=== PATIENT | male | born 1995 | race Caucasian/White ===

== ENCOUNTER 2016-07-29 08:34 | Day surgery (SDC) | payer OTHER ==
[~2016-07-29 08:34] MED LIST: BUPIVACAINE 0.5% 30 ML SDV ONE; ceFAZolin 2 GM/DEXTROSE 100 ML IV ONE
[2016-07-29] MEDS ORDERED: CEFAZOLIN 2 GM/DEXTROSE/100 ML BAG IV ONE (08:53)
[2016-07-29] MEDS ORDERED: LIDOCAINE 1% 5 ML SDV ONE (09:03)
[2016-07-29] MEDS ORDERED: LIDOCAINE 1% 5 ML SDV ID PRN (09:26)
[2016-07-29] MEDS ORDERED: LR 1,000 ML IV ONE (09:26)
[2016-07-29] MEDS ORDERED: MIDAZOLAM 2 MG/2 ML VIAL ONE (09:39)
[2016-07-29] MEDS ORDERED: fentaNYL 100 MCG/2 ML INJ ONE (09:50)
[2016-07-29] MEDS ORDERED: LIDOCAINE 2% 5 ML SDV ONE (09:57)
[2016-07-29] MEDS ORDERED: KETOROLAC 30 MG/1 ML SDV ONE (09:57)
[2016-07-29] MEDS ORDERED: DEXAMETHASONE 4 MG/ML VIAL ONE (09:57)
[2016-07-29] MEDS ORDERED: THROMBIN (RECOMBINANT) 5,000 UNIT VIAL TP ONE (10:25)
== END 2016-07-29 12:00 | disposition home or self-care (01) ==
LOC: FSGY 08:34
PROVIDERS: ATTEND Surgery
PROC: 0HBU0ZZ Excision of Left Breast, Open Approach (ICD-10-PCS; principal; 2016-07-29 10:45)
DX: N62 Hypertrophy of breast (principal)
CPT/HCPCS: J0690; J1100; J1885; J2250; J3010